=== PATIENT | male | born 1945 | race Caucasian/White ===

== ENCOUNTER 2020-08-02 00:13 | Emergency (ER) | payer MEDICARE, OTHER ==
[~2020-08-02] VITALS: Ht 182.9 cm; Wt 93.9 kg
[~2020-08-02 00:13] MED LIST: ACIDOPHILUS; ALBU.083IS; ALBU3IS INH; AMLO10 PO; AMLO5; BUDE6HFA; CETI10; Co Q-10300 MG PO; FINA5 PO; GLUCOSAMINE 1500 MG; Hytrin2 MG PO; IPRAIS; LOSA50 PO; LOSARTAN 100MG; MOME220I; PANT40; PANT40 PO; SYMBICORT 160-4.6 GM INH; VITAMIN D3125 MC3 PO; ZYRTEC10 M2 PO
[2020-08-02] MEDS ORDERED: GUAI600T33 PO (00:56)
[2020-08-02] MEDS ORDERED: COMBIVENT RESPIM4 G1 INH (00:57)
[2020-08-02] MEDS ORDERED: MYRBETRIQ50 MG PO (00:59)
[2020-08-02] MEDS ORDERED: GABA300 PO (00:59)
[2020-08-02] MEDS ORDERED: ROPI1 PO (01:01)
[2020-08-21] MEDS ORDERED: PANT40 PO (10:36)
[2020-08-21] MEDS ORDERED: LOSARTAN POTAS100 M1 PO (10:36)
[2020-08-21] MEDS ORDERED: Amlodipine Besyl5 MG PO (10:36)
[2020-08-21] MEDS ORDERED: COQ-10100 MG PO (10:36)
[2020-08-21] MEDS ORDERED: ZYRTEC10 M2 PO (10:36)
[2020-08-21] MEDS ORDERED: FINA5 PO (10:36)
[2020-08-21] MEDS ORDERED: VITAMIN D325 MC3 PO (10:37)
[2020-08-21] MEDS ORDERED: ALBU2.5V5 INH (10:37)
[2020-08-21] MEDS ORDERED: Hytrin2 MG PO (10:37)
[2020-08-21] MEDS ORDERED: COMBIVENT RESPIM4 G1 INH (10:38)
[2020-08-21] MEDS ORDERED: SYMBICORT 160-4.6 GM INH (10:38)
[2020-08-21] MEDS ORDERED: GUAI600T33 PO (10:38)
[2020-08-21] MEDS ORDERED: GABA300 PO (10:39)
[2020-08-21] MEDS ORDERED: MYRBETRIQ50 MG PO (10:39)
[2020-09-25] MEDS ORDERED: MELATONIN5 M1 (09:37)
[2020-09-25] MEDS ORDERED: ACIDOPHILUS1 EAC3 (09:37)
== END 2020-08-02 01:45 | disposition home or self-care (01) ==
LOC: ER 00:13
DX: Z48.00 Encounter for change or removal of nonsurgical wound dressing (principal); I10 Essential (primary) hypertension; Z87.891 Personal history of nicotine dependence; Z88.8 Allergy status to other drugs, medicaments and biological substances; Z79.899 Other long term (current) drug therapy
CPT/HCPCS: 99282

== ENCOUNTER 2020-08-28 07:57 | Day surgery (SDC) | payer OTHER, MEDICARE ==
[~2020-08-28] VITALS: Ht 180.3 cm; Wt 93.3 kg
[~2020-08-28 07:57] MED LIST changes: +ALBU2.5V5 INH; +Amlodipine Besyl5 MG PO; +COMBIVENT RESPIM4 G1 INH; +COQ-10100 MG PO; +GABA300 PO; +GUAI600T33 PO; +LOSARTAN POTAS100 M1 PO; +MYRBETRIQ50 MG PO; +ROPI1 PO; +VITAMIN D325 MC3 PO
[2020-08-28] MEDS ORDERED: ROPI1 PO (08:26)
[2020-09-25] MEDS ORDERED: MELATONIN5 M1 (09:37)
[2020-09-25] MEDS ORDERED: ACIDOPHILUS1 EAC3 (09:37)
== END 2020-08-28 10:00 | disposition home or self-care (01) ==
LOC: ORSCSDS 07:57
PROVIDERS: Ophthalmology
PROC: 08RJ3JZ Replacement of Right Lens with Synthetic Substitute, Percutaneous Approach (ICD-10-PCS; principal; 2020-08-28 09:15)
DX: H25.11 Age-related nuclear cataract, right eye (principal); I10 Essential (primary) hypertension; J44.9 Chronic obstructive pulmonary disease, unspecified; Z87.891 Personal history of nicotine dependence; K21.9 Gastro-esophageal reflux disease without esophagitis; Z79.899 Other long term (current) drug therapy
CPT/HCPCS: A9270; J2001; J2250; J2704; J3010; J3301; J7040; V2632

== ENCOUNTER 2020-10-09 08:33 | Day surgery (SDC) | payer OTHER ==
[~2020-10-09] VITALS: Ht 182.9 cm; Wt 93.3 kg
[~2020-10-09 08:33] MED LIST changes: +ACIDOPHILUS1 EAC3; +MELATONIN5 M1
--- NOTE | 2020-10-09 09:22 | NUR ---
10/09/20 0922 Marielle Pederson 0903 TETRACAINE DROP PLACED IN LT EYE PER DR ORDERS. 0908 PLEDGET PLACED IN LT EYE PER DR ORDERS.
== END 2020-10-09 10:16 | disposition home or self-care (01) ==
LOC: ORSCSDS 08:33
PROVIDERS: Ophthalmology
PROC: 08SK3ZZ Reposition Left Lens, Percutaneous Approach (ICD-10-PCS; principal; 2020-10-09 10:00)
DX: T85.22XA Displacement of intraocular lens, initial encounter (principal)
CPT/HCPCS: A9270; J2001; J2250; J3010; J3301; J7040